=== PATIENT | male | born 1955 | race Caucasian/White ===

== ENCOUNTER 2019-11-25 10:49 | Outpatient (CLI) | payer BC, SELFPAY ==
--- NOTE | ~2019-11-25 | XR_ITS ---
XR lumbar spine 2-3V DATE: 11/25/2019 11:04 INDICATION: Mid and low back pain. No injury. TECHNIQUE: AP, lateral, coned lateral lumbosacral views COMPARISON: 03/22/2017 lumbar spine FINDINGS: Diffuse idiopathic skeletal hyperostosis of the lumbar spine. There is moderate degenerative disc disease particularly at L1-2, L2-3, L5-S1. No fracture or bone destruction is evident. The lumbar pedicles are intact. The sacroiliac joints are normal. Probable calcified calculus of the lower pole of the left kidney is again noted. IMPRESSION: Diffuse idiopathic skeletal hyperostosis, moderate degenerative disc disease Reviewed, dictated and finalized at location A. IMPRESSION: Diffuse idiopathic skeletal hyperostosis, moderate degenerative dis c disease
--- NOTE | ~2019-11-25 | XR_ITS ---
XR thoracic spine 3V DATE: 11/25/2019 11:04 INDICATION: Back pain TECHNIQUE: AP, lateral, swimmer views COMPARISON: None FINDINGS: There is diffuse idiopathic skeletal hyperostosis of the thoracic spine. No fracture, dislo cation or bone destruction. The thoracic pedicles are intact. No paraspinal soft tissue thickening. IMPRESSION: Diffuse idiopathic skeletal hyperostosis of the thoracic spine Reviewed, dictated and finalized at location A.
== END 2019-11-25 10:50 | disposition home or self-care (01) ==
LOC: ANHIMG 10:52
PROVIDERS: PCP Family Medicine; Visit Provider Physician Assistant
DX: M54.9 Dorsalgia, unspecified (principal); M48.16 Ankylosing hyperostosis [Forestier], lumbar region; M51.36 Other intervertebral disc degeneration, lumbar region
CPT/HCPCS: 72072; 72100